=== PATIENT | male | born 1960 | race Caucasian/White ===

== ENCOUNTER 2018-01-20 08:25 | Day surgery (SDC) | payer MEDICAID ==
[~2018-01-20] VITALS: Ht 170.2 cm; Wt 95.4 kg
[~2018-01-20 08:25] MED LIST: ALBUAER3 IN; ASPI81TA27 PO; BACL20TA PO; BENA20TA14 PO; BUDE0.5S IN; CARV6.2551 PO; CHOL200010 PO; DOCU100C8 PO; FLU220IH INH; GABA400C11 PO; HYDR-531 PO; IODIXANOL 320MG/ML 100ML BTL IV ONE; IPRAAER6 IN; LIDO5DIS21 TOP; MONT10TA34 PO; SIMV-13 PO; TRIP2.5T9 PO
[2018-01-20] MEDS ORDERED: LIDOCAINE HCL 2 %PF INJ 10ML AMP IJ ONE (09:26)
[2018-01-20] MEDS ORDERED: IODIXANOL 320MG/ML 100ML BTL IV ONE (09:32)
[2018-01-20] MEDS ORDERED: fentaNYL CITRATE 100 MCG/2 ML VL ONE (10:51)
[2018-01-20] MEDS ORDERED: MIDAZOLAM HCL 1MG/1ML-2 ML VIAL ONE (10:51)
[2018-01-20] MEDS ORDERED: ANGIOMAX 250 MG VIAL IV ONE (10:52)
[2018-01-20] MEDS ORDERED: SODIUM CHLORIDE 0.9% 1,000 ML IV SCH (11:55)
== END 2018-01-20 13:30 | disposition home or self-care (01) ==
LOC: CATH 08:25
PROVIDERS: ATTEND Internal Medicine Cardiovascular Disease
DX: I25.10 Atherosclerotic heart disease of native coronary artery without angina pectoris (principal); J44.9 Chronic obstructive pulmonary disease, unspecified; I50.30 Unspecified diastolic (congestive) heart failure; Z68.32 Body mass index [BMI] 32.0-32.9, adult; I10 Essential (primary) hypertension; F17.210 Nicotine dependence, cigarettes, uncomplicated; E78.5 Hyperlipidemia, unspecified
CPT/HCPCS: 93458; C1760; C1894; J1644; J3010; 99152; 99153; J2250; Q9967